=== PATIENT | male | born 1955 | race Two or more races ===

== ENCOUNTER 2020-07-23 20:13 | Emergency (ER) | payer MEDICARE, MEDICAID ==
[~2020-07-23] VITALS: Ht 170.2 cm; Wt 90.7 kg
--- NOTE | 2020-07-23 20:20 | Emergency Room Report ---
History of Present Illness General Chief Complaint: Right foot injury Source: Patient, EMS Present Illness HPI Disclaimer: Please note that this report is being documented using DRAGON technology. This can lead to erroneous entry secondary to incorrect interpretation by the dictating instrument. HPI: 65-year-old male history of diabetes with lower extremity neuropathy presents for evaluation after right ankle injury. The patient was getting out of bed when he accidentally slipped on his floor landing with his weight on his right foot. Noted deformity over the lateral aspect. Unable to bear weight and noted swelling. Denies significant pain as he states he has no feeling below his mid dukes secondary to diabetic neuropathy for which he takes gabapentin. Denied any lacerations, bleeding. No other injuries reported. PMH: Diabetes, neuropathy PSH: Reviewed Allergies: Reviewed Social Hx: Viewed Allergies: Coded Allergies: No Known Allergies (Unverified , 07/23/20) Review of Systems All Other Systems: negative except mentioned in HPI Physical Exam General: Awake and alert, no acute distress HEENT: NC/AT. EOMI. Resp: Normal work of breathing Skin: Intact. No abrasions, laceration or rash over the exposed skin MSK: Normal tone and bulk. Moving all extremities. Edema of the right ankle circumferentially and the midfoot is well with deformity and mild tenting over the lateral malleolus. Patient is able to plantarflex and dorsiflex somewhat. No skin breakdown noted. Neuro: Awake and alert. Mentating appropriately Procedures Splinting Splinting : Consent: Emergent Hand-Made Type: plaster Splint: Posterior short with sugar tong Pre-Proc Neuro Vasc Exam: normal Post-Proc Neuro Vasc Exam: normal Patient Tolerated: Well Complications: None Joint Reduction Joint Reduction : Consent: Verbal Joint Reduction Site: other - Right ankle Procedural Sedation: No Reduction Attempts: Other - 2 Pre-Procedure NV Exam: Yes Post-Procedure NV Exam: Yes Post Joint Reduction Film: joint reduced Patient Tolerated: Well Complications: None Medical Decision Making Diagnostic Impression: Primary Impression: Trimalleolar fracture of ankle, closed ER Course 65-year-old male presents for evaluation of injury with deformity of the right ankle sustained in a fall while getting up from bed prior to arrival. No evidence of open fracture though concern for displaced fracture given the palpable deformity. Initial x-rays show trimalleolar fracture with posterior displacement of the talus without obvious fracture in the foot. Patient was reduced and splinted though initial attempt showed persistent dorsal displacement and splint was redone. Repeat shows improved alignment. Patient will be provided with crutches and discharged to follow-up with an orthopedic surgeon that is part of his O insurance plan. He is neurovascularly intact. Discussed proper splint care, use of crutches and need for urgent follow-up with orthopedic surgery. Copies of his images were provided to him. He is stable for outpatient follow-up. Discussed reasons to return to the ED. He understands and agrees with this treatment plan. Other X-Ray Diagnostic Results Other X-Ray Diagnostic Results #1: X-Ray ordered: Right ankle # of Views/Limited Vs Complete: Complete Indication: Pain EP Interpretation: Yes Interpretation: other - Trimalleolar fracture with posterior displacement Impression: Other - Trimalleolar fracture with posterior displacement Electronically Signed by: Electronically signed by Dr. Miguel Thomas Other X-Ray Diagnostic Results #2: X-Ray ordered: Right foot # of Views/Limited Vs Complete: 2 View Indication: Pain EP Interpretation: Yes Interpretation: other - Trimalleolar fracture is demonstrated on ankle view. No obvious foot fracture Impression: Other - Redemonstrated trimalleolar fracture. No acute findings in the foot Electronically Signed by: Electronically signed by Dr. Miguel Thomas Other X-Ray Diagnostic Results #3: X-Ray ordered: Post reduction right ankle # of Views/Limited Vs Complete: 2 View Indication: Pain EP Interpretation: Yes Interpretation: other - Improved alignment of trimalleolar fracture Impression: Other - Improved alignment of trimalleolar fracture Electronically Signed by: Electronically signed by Dr. Miguel Thomas Disposition: HOME, SELF-CARE Condition: Stable Scripts Ibuprofen* (MOTRIN*) 600 Mg Tablet 600 MG ORAL Q6H PRN for For Pain, #30 TAB 0 Refills Prov: Miguel Thomas MD 07/23/20 Hydrocodone Bit/Acetaminophen 7.5-325* (NORCO 7.5-325*) 1 Each Tablet 1 TAB ORAL Q6H PRN for For Pain, #12 TAB 0 Refills Prov: Miguel Thomas MD 07/23/20 Miguel Thomas MD Jul 23, 2020 20:20
[2020-07-23] MEDS ORDERED: NORCO 7.5-3251 EACH ORAL (21:59)
[2020-07-23] MEDS ORDERED: IBUPROFEN600 M1 ORAL (21:59)
[2020-07-23 23:00] VITALS: BP 150/90
--- NOTE | 2020-07-24 16:21 | Diagnostic Imaging Report ---
Indication: Trauma, pain Technique: 3 views of the right foot Comparison: none Findings: There is an ankle fracture-see separate ankle radiograph report. No pelvic acute foot fractures. No dislocations. There are degenerative changes of the first metatarsophalangeal joint. There are vascular calcification Impression: Ankle fracture-see separate ankle radiograph report No acute foot fracture Degenerative changes as described
--- NOTE | 2020-07-24 16:22 | Diagnostic Imaging Report ---
Indication: Pain, trauma Technique: 3 views of the right ankle Comparison: none Findings: There is a comminuted overriding fracture of the distal fibula. There is a fracture of the medial malleolus which is comminuted. There is also a posterior malleolar fracture. There is posterior and lateral subluxation/dislocation of the talus relative to the tibia. Impression: Trimalleolar fracture with associated subluxation/dislocation, as described
--- NOTE | 2020-07-24 16:23 | Diagnostic Imaging Report ---
Indication: Pain, trauma, post reduction Technique: 3 views of the right ankle Comparison: One hour earlier Findings: Interim placement of a plaster cast. Essentially unchanged alignment of previously demonstrated trimalleolar fracture dislocation Impression: Trimalleolar fracture dislocation in plaster
--- NOTE | 2020-07-24 16:29 | Diagnostic Imaging Report ---
Indication: Post reduction Technique: 3 views right ankle Comparison: One hour earlier Findings: Interim markedly improved alignment of previously demonstrated trimalleolar fracture/dislocation post closed reduction. Overlying plaster cast obscures bony detail. Impression: Improved alignment, status post closed reduction
== END 2020-07-23 23:00 | disposition home or self-care (01) ==
LOC: EDBD 20:13 → EMR 20:30
DX: S82.851A Displaced trimalleolar fracture of right lower leg, initial encounter for closed fracture (principal); E11.40 Type 2 diabetes mellitus with diabetic neuropathy, unspecified; W01.0XXA Fall on same level from slipping, tripping and stumbling without subsequent striking against object, initial encounter; Y92.9 Unspecified place or not applicable
CPT/HCPCS: 99283